=== PATIENT | female | born 2000 | race Caucasian/White ===

== ENCOUNTER 2021-03-23 17:30 | Emergency (ER) | payer BC, SELFPAY ==
--- NOTE | 2021-03-23 17:35 | ED.GENADULT ---
HPI - General Adult General Chief complaint: Back Pain/Injury Stated complaint: lower back pain Time Seen by Provider: 03/23/21 17:35 Source: patient Mode of arrival: ambulatory Limitations: no limitations History of Present Illness HPI narrative: 20-year-old female patient presents to the [facility] with complaints of low back pain. Patient states yesterday when she woke up she felt like she had tweaked something in her lower back. Patient denies any numbness or tingling down the legs. Denies any loss of bowel or bladder control. Patient denies taking anything for her pain. Patient states she did use a heating pad which did make it feel better. Patient states that she called into work yesterday and is here to get a doctor's note. Related Data Home Medications Medication Instructions Recorded Confirmed lisdexamfetamine [Vyvanse] 40 mg PO DAILY 03/23/21 03/23/21 venlafaxine 150 mg PO DAILY 03/23/21 03/23/21 ziprasidone HCl [Geodon] 40 mg PO DAILY 03/23/21 03/23/21 Allergies Allergy/AdvReac Type Severity Reaction Status Date / Time amoxicillin [From Augmentin] Allergy Vomiting Verified 03/23/21 17:49 cefuroxime [From Ceftin] Allergy Vomiting Verified 03/23/21 17:49 clavulanic acid Allergy Vomiting Verified 03/23/21 17:49 [From Augmentin] Review of Systems Review of Systems: CONSTITUTIONAL: Denies fever, chills, or sweats. EYES: Denies visual changes, redness, or discharge. ENT: Denies rhinorrhea, congestion, sore throat, or otalgia. CARDIOVASCULAR: Denies chest pain, palpitations, or edema. RESPIRATORY: Denies cough or dyspnea. GASTROINTESTINAL: Denies abdominal pain, nausea, vomiting, or diarrhea. GENITOURINARY: Denies dysuria or hematuria. SKIN: Denies rash or itching. MUSCULOSKELETAL: Positive low back pain, denies joint pain, or myalgia. NEUROLOGIC: Denies headache, numbness, or weakness. PSYCHIATRIC: Denies anxiety or depression. PMFSH Comments At the time of my signature I agree with nursing past medical history, surgical, social, and family history. There is no relevant family history pertinent to the presenting complaint. Exam Narrative: GENERAL: Well-appearing, well-nourished, and in no acute distress. HEAD: Normocephalic, atraumatic. EYES: PERRLA and EOMI. ENT: Nares clear, no rhinorrhea or epistaxis. Mucous membranes moist. NECK: Supple. No lymphadenopathy CHEST: Clear to auscultation. No respiratory distress. HEART: Regular rate and rhythm. No murmur heard. Normal peripheral pulses. ABDOMEN: Soft, nontender, nondistended, normal active bowel sounds. EXTREMITIES: Normal range of motion. No edema. Back: Patient is able to ambulated without assistance. Pt is seated/lying on the stretcher in no obvouis distress. No surface trauma noted. No muscle tenderness to Palpation. No spasm or mass. No step-offs or deformity noted to the cervical, thoracic or lumbar spine to firm Palpation at the midline. No CVA tenderness to percussion. No saddle anesthesia. ROM: able to stand erect. Normal flexion, extension, Lateral bending and rotation without limitation or complaint of pain. SKIN: Warm, dry, no rash. NEURO: No focal deficits. Alert and oriented x3. Course Vital Signs Vital signs: Vital Signs Temperature 36.8 C 03/23/21 17:40 Pulse Rate 94 03/23/21 17:40 Respiratory Rate 18 03/23/21 17:40 Blood Pressure 137/69 03/23/21 17:40 Pulse Oximetry 99 03/23/21 17:40 Temperature 36.8 C 03/23/21 17:40 Pulse Rate 94 03/23/21 17:40 Respiratory Rate 18 03/23/21 17:40 Blood Pressure 137/69 03/23/21 17:40 Pulse Oximetry 99 03/23/21 17:40 Vital signs reviewed. Medical Decision Making Differential Diagnosis Differential Diagnosis: Differential diagnosis: Acute musculoskeletal injury or exacerbation, neurological emergency, acute coronary syndrome, kidney stones, epidural abscess or hematoma,Cauda Equina Syndrome, herniation. Plan of care for patient is to encourage Tylenol and ib
[2021-03-23 17:40] VITALS: BP 137/69; PULSE 94; RESP 18; TEMP 36.8; O2SAT 99
== END 2021-03-23 18:11 | disposition home or self-care (01) ==
PROVIDERS: Emergency Provider Nurse Practitioner Family
DX: S39.012A Strain of muscle, fascia and tendon of lower back, initial encounter (principal); X58.XXXA Exposure to other specified factors, initial encounter
CPT/HCPCS: 81003; 99212; G0463

== ENCOUNTER 2021-09-13 15:13 | Emergency (ER) | payer BC, SELFPAY ==
--- NOTE | 2021-09-13 15:16 | ED.EXTPRO ---
HPI - Extremity Problem General Chief complaint: Extremity Problem,Nontraumatic Stated complaint: left 2nd digit finger infection Time Seen by Provider: 09/13/21 15:17 Source: patient, RN notes reviewed and old records reviewed Mode of arrival: ambulatory Limitations: no limitations History of Present Illness HPI Narrative: 21-year-old female presents to the [facility] with complaints of a rash after taking Bactrim. Was taking Bactrim for paronychia. Denies any shortness of breath, lip swelling, tongue swelling, shortness of breath or chest pain or abdominal pain Related Data Home Medications Medication Instructions Recorded Confirmed lisdexamfetamine [Vyvanse] 40 mg PO DAILY 03/23/21 09/13/21 venlafaxine 150 mg PO DAILY 03/23/21 09/13/21 Depakote ER 750 mg PO DAILY 09/13/21 09/13/21 Allergies Allergy/AdvReac Type Severity Reaction Status Date / Time sulfamethoxazole Allergy Mild rash Verified 09/13/21 15:29 [From Bactrim] trimethoprim [From Bactrim] Allergy Mild rash Verified 09/13/21 15:29 amoxicillin [From Augmentin] Allergy Vomiting Verified 09/13/21 15:29 cefuroxime [From Ceftin] Allergy Vomiting Verified 09/13/21 15:29 clavulanic acid Allergy Vomiting Verified 09/13/21 15:29 [From Augmentin] Review of Systems Review of Systems: All systems reviewed & are unremarkable except as noted in HPI and below Constitutional: Constitutional: Reports no additional constitutional complaints, Denies chills and Denies fever(s) Eyes: Eyes: Reports no additional eye complaints ENT: Reports system reviewed and no additional complaints, except as documented Cardiovascular: Cardiovascular: Reports no additional cardiovascular complaints Respiratory: Respiratory: Reports no additional respiratory complaints Gastrointestinal: Gastrointestinal: Reports no additional gastrointestinal complaints Musculoskeletal: Musculoskeletal: Reports no additional musculoskeletal complaints Integumentary/Breasts: Skin/Breast: Reports as per HPI and Reports rash Neurologic: Reports system reviewed and no additional complaints, except as documented Psychiatric: Psychiatric: Reports no additional psychiatric complaints Allergic/Immunologic: Allergic/Immunologic: Reports no additional allergic/immunologic complaints PMFSH Comments At the time of my signature, I reviewed and agree with the nursing past medical, surgical, social, and family history. There is no relevant family history pertinent to the patient complaint. Exam Const: General: healthy appearing, no acute distress and alert Nutritional Appearance: well nourished Orientation/consciousness: patient oriented x3 Limitations: no limitations HENMT: Head: normal to inspection Ears: external ears normal Eyes: Pupils: Equal, round and reactive pupils present Neck: Neck: normal visual inspection, no lymphadenopathy and no meningeal signs Chest: Chest palpation & inspection: normal inspection of the chest Resp: Effort & Inspection: normal respiratory effort and no use of accessory muscles Auscultation: clear to auscultation bilaterally, no crackles, no rales, no rhonchi and no wheezes Cardio: Rate: regular rate Rhythm: regular rhythm GI: GI Palp: Yes Soft to palpation and No Tenderness to palpation present (GI) : General: Yes no CVA tenderness Back/Spine/Pelvis: Back: no CVA tenderness Skin: General skin exam: normal color Rashes: rashes noted (Generalized light pink rash to arms, abdomen, legs) Wounds: no wounds Neuro: General: patient oriented x3, moves all extremities, no meningeal signs and no focal motor deficits Cranial nerves: Yes Equal, round and reactive pupils present Speech: normal speech Gait exam (Neuro): Normal gait present Extrem: General: normal to inspection Psych: Appearance: grossly normal and well kempt Mental Status: mental status grossly normal Affect: normal affect Attitude: cooperative Thought content: Yes Normal thought content
[2021-09-13 15:19] VITALS: BP 135/70; PULSE 88; RESP 16; TEMP 36.6; O2SAT 98
== END 2021-09-13 15:40 | disposition home or self-care (01) ==
PROVIDERS: Emergency Provider Nurse Practitioner
DX: R21 Rash and other nonspecific skin eruption (principal); F90.9 Attention-deficit hyperactivity disorder, unspecified type; F41.9 Anxiety disorder, unspecified; F31.9 Bipolar disorder, unspecified
CPT/HCPCS: 99211; G0463